=== PATIENT | female | born 1995 | race Caucasian/White ===

== ENCOUNTER 2020-04-13 20:36 | Emergency (ER) | payer OTHER ==
[2020-04-13 21:13] VITALS: BP 127/77
--- NOTE | 2020-04-13 22:37 | ER Document Report ---
ED General - General Chief Complaint: Rash Stated Complaint: TINGLING, ITCHING - HPI Notes: Chief Complaint: Left back tingling Historian: History obtained from patient HPI: This is a 22-year-old female presents to the ER complaining of tingling sensation to her left upper back began yesterday. She denies radiation of pain to extremities neck low back. No injury or trauma. She is concerned this possibly allergic reaction due to new laundry detergent versus possible shingles. She has no history of shingles but says mother in the past similar presentation. She denies any rash at this time. Patient denies itching, shortness of breath, hives. She did have chickenpox as a child. No other associated symptoms. ROS: Constitutional: no fevers. HEENT: no RADFORD, sore throat, or vision changes. CV: no chest pain or palpitations. Resp: no cough or SOB. GI: no abdominal pain, or n/v/d. : no dysuria, hematuria, or incont. MSK: no back pain, no joint swelling/redness. Skin: no rashes or itching. Neuro: Tingling to left upper back Hematological: no ecchymosis or easy bleeding. Endocrine: no polyuria/polydipsia, no heat/cold intolerance. Psych: no SI/HI, AH/VH or memory loss. PMHx: Reviewed and agree as charted by RN. PSHx: Reviewed and agree as charted by RN. SOCHx: Reviewed and agree as charted by RN. FHX: No significant familial comorbid conditions directly related to patient complaint Current Medications: Reviewed and agree with the patient medications as charted by the RN. Allergies: Reviewed and agree with the listed allergies as charted by the RN Physical Exam: Vitals: Reviewed in chart as documented by RN. General: Alert and in NAD. Head: Normocephalic; atraumatic Eyes: PERRLA, Conjunctivae clear sclerae non-icteric bilat ENT: no soft palate swelling or uvular deviation Neck: trachea midline, no unilateral swelling/tenderness/lymphadenopathy CV: RRR, no M/R/G; symmetric distal pulses Resp: respirations even and unlabored, CTA bilat. GI: abd soft and nondistended. NTTP. normal BS. no masses/HSM. no CVAT bilat MSK: FROM of all extremities. No midline CTL spine tenderness/deformity Skin: Sensation changes to left upper trapezius area that goes from midline and ends just beyond the scapular spine and an oblique downward fashion. No obvious rash or vesicles. No hives. Full range of motion of C-spine upper extremities and thoracic spine nontender to palpation. Neuro: Alert and oriented X 4. following CN 2-12 intact. no unilateral weakness/numbness Psych: No SI/HI or AH/VH. ED Results: Medical Decision-Making: This is likely shingles first paresthesias versus dermatitis versus allergic reaction. Tingling does seem to be unilateral in a dermatomal distribution along T1, T2, or T3 area. There is no rash at this time. But it could be an early sign of shingles. She has no respiratory involvement or other signs of an acute allergic reaction. Discussed options with patient regarding empiric treatment and delayed treatment for shingles to see if rash outbreaks she would prefer to go ahead and start empiric therapy. Its only been 24 hours. We will start her on Valtrex and steroids. return factors discussed - Related Data Home Medications: stopped bcp one month ago Past Medical History - Social History Smoking Status: Never Smoker Chew tobacco use (# tins/day): No Frequency of alcohol use: None Drug Abuse: None Family History: Reviewed & Not Pertinent Physical Exam - Vital signs Vitals: Temp Pulse BP Pulse Ox 97.8 F 72 127/77 H 100 04/13/20 21:12 04/13/20 21:12 04/13/20 21:12 04/13/20 21:12 Course - Vital Signs Vital signs: Temp Pulse Resp BP Pulse Ox 97.8 F 72 127/77 H 100 04/13/20 21:12 04/13/20 21:12 04/13/20 21:12 04/13/20 21:12 - Laboratory Results Critical Laboratory Results Reviewed: No Critical Results - Radiology Results Critical Radiology Results Reviewed: No Critical Results Discharge - Discharge Clinical Impression: Paresthesia Condition: Stable Disposition: HOME, SELF-CARE Instructions: Shingles ([facility]) Prescriptions: Prednisone [Deltasone 20 mg Tablet] 3 tab PO DAILY 5 Days #15 tablet Valacyclovir HCl [Valtrex] 1,000 mg PO TID #42 tablet
== END 2020-04-13 22:58 | disposition home or self-care (01) ==
LOC: ER 20:36
DX: R20.2 Paresthesia of skin (principal); R21 Rash and other nonspecific skin eruption; M54.5 Low back pain
CPT/HCPCS: 99283